=== PATIENT | male | born 1975 | race Two or more races ===

== ENCOUNTER 2024-11-01 18:15 | Emergency (ER) | payer OTHER ==
[2024-11-01 18:21] VITALS: RESP 18; TEMP 98.4; BMI 25.1
[2024-11-01] MEDS ORDERED: ONDANSETRON *ODT* 4 MG TABLET ONE (19:05)
[2024-11-01] MEDS: ONDANSETRON *ODT* 4 MG TABLET SL ONE (19:06)
[2024-11-01] MEDS ORDERED: FAMOTIDINE 20 MG TABLET ONE (19:20)
[2024-11-01] MEDS: FAMOTIDINE 20 MG TABLET PO ONE (19:23)
[2024-11-01 19:47] LABS: ABSOLUTE IMMATURE GRANULOCYTES 0.04 x10^3/uL (0.0-0.031); BASOPHILS # 0.02 x10^3/uL (0.01-0.08); EOSINOPHIL % 0.7 % (0.8-7.0); EOSINOPHILS # 0.07 x10^3/uL (0.04-0.54); HEMATOCRIT 46.8 % (40.1-51.0); HEMOGLOBIN 15.4 g/dL (13.7-17.5); MCHC 32.9 g/dl (32.3-36.5); MEAN CELL VOLUME 93.4 fl (79.0-92.2); MEAN PLT VOLUME 11.3 fl (9.4-12.4); MONOCYTE # 0.53 x10^3/uL (0.30-0.82); MONOCYTE % 5.6 % (5.3-12.2); PLATELET COUNT 206 x10^3/uL (163-337); RDW 12.6 % (12.1-15.9)
[2024-11-01 20:02] LABS: POTASSIUM 4.2 mmol/L (3.5-5.1)
[2024-11-01 20:04] LABS: ALBUMIN 3.8 g/dl (3.4-5.0); CALCIUM 10.1 mg/dL (8.5-10.1)
[2024-11-01 20:05] LABS: BLOOD UREA NITROGEN 11.3 mg/dL (7-18); MAGNESIUM 1.9 mg/dL (1.8-2.4)
[2024-11-01 20:08] LABS: CREATININE 0.8 mg/dL (0.55-1.3)
[2024-11-01 20:09] LABS: BILIRUBIN,TOTAL 0.8 mg/dL (0.2-1); TOT PROT 7.1 g/dl (6.4-8.2)
[2024-11-01] MEDS ORDERED: MECLIZINE HCL 25 MG TABLET (FP) ONE (20:46)
[2024-11-01] MEDS: MECLIZINE HCL 25 MG TABLET (FP) PO ONE (20:48)
[2024-11-01 20:59] LABS: HCV DIAGNOSTIC IN-HOUSE W/RFLX NON-REACTIVE (NONREACTIVE)
[2024-11-01 22:27] VITALS: BP 142/92; PULSE 56
[2024-11-01 23:22] LABS: HIV INTERPRETATION NEGATIVE (NEGATIVE)
== END 2024-11-01 22:45 | disposition left against medical advice (07) ==
LOC: JER 18:15
DX: R42 Dizziness and giddiness (principal); R11.2 Nausea with vomiting, unspecified
CPT/HCPCS: 0241U-QW; 36415; 70450-TC; 80053; 83690; 83735; 84484; 85025; 86803; 87389; 93005; 93010; 99285-25; Q0162